=== PATIENT | female | born 1955 | race African-American/Black ===

== ENCOUNTER 2016-12-25 12:44 | Outpatient (CLI) | payer OTHER ==
--- NOTE | 2016-12-25 15:06 | RAD ---
SCOLIOSIS SERIES: Comparison: None. History: Life long history of scoliosis with chronic back pain. FINDINGS: Anterior views of the thoracic and lumbosacral spines were performed. Patient has moderate scoliotic curvature of the spine with an S-shaped configuration. The maximum angle is approximately 46%. Ther e are moderate osteophytes in the lower thoracic and upper lumbar spine. IMPRESSION: Moderate scoliosis and degenerative changes of the spine as above. POS: [facility]
== END 2016-12-25 12:45 | disposition home or self-care (01) ==
LOC: SCSRAD 12:44
PROVIDERS: ATTEND Family Medicine
DX: M41.9 Scoliosis, unspecified (principal); M47.819 Spondylosis without myelopathy or radiculopathy, site unspecified
CPT/HCPCS: 72081

== ENCOUNTER 2017-01-06 10:01 | Outpatient (CLI) | payer OTHER ==
--- NOTE | 2017-01-06 14:04 | MRI ---
LUMBAR SPINE MRI WITHOUT IV CONTRAST: History: 61-year-old female with scoliosis and low back pain. Technique: Multiplanar, multisequence MRI examination of the lumbar spine was performed. FINDINGS: There does appear to be a T2 and T1 hypointense nodular focus within the gallbladder raising concern s for gallstones. Conus medullaris region is unremarkable terminating at the L2 level. T12-L1: Unremarkable. L1-2: There is diffuse disc hypertrophic osteophytosis with some mild right lateral recess stenosis without significant foraminal stenosis. L2-3: There is diffuse disc osteophytosis and facet arthrosis with some mild lateral recess stenosis . L3-4: There is diffuse disc osteophytosis with ligament and facet hypertrophic changes with moderate right lateral recess stenosis and mild left recess stenosis with some mild to moderate bilateral fo raminal stenosis. L4-5: There is disc osteophytosis and ligament and facet hypertrophic changes with mild to moderate left lateral recess stenosis and severe left foraminal stenosis and mild to moderate right foraminal stenosis. L5-S1: Severe facet arthrosis with extensive fluid in the facet joints bilaterally. Very mild indent ion of the ventral thecal sac. Moderate to severe bilateral foraminal stenosis. There are some minimal scattered endplate changes at all levels including some minimal type I endpla te changes including L1-2, L2-3, L3-4, L4-5 and L5-S1. IMPRESSION: Levoscoliosis. Variable severity multiple level lateral recess and foraminal stenosis. Type I endpla te changes involving all of the lumbar disc levels. Probable gallstones, correlate with gallbladder ultrasound in that regard. POS: [facility]
== END 2017-01-06 10:02 | disposition home or self-care (01) ==
LOC: SCSMRI 10:01
PROVIDERS: ATTEND Family Medicine
DX: M54.16 Radiculopathy, lumbar region (principal); M41.86 Other forms of scoliosis, lumbar region
CPT/HCPCS: 72148

== ENCOUNTER 2017-10-01 11:31 | Emergency (ER) | payer OTHER | END 2017-10-01 12:12 | disposition home or self-care (01) | LOC: SCSER 11:31 | DX: M54.5 Low back pain (principal); G89.29 Other chronic pain; E78.5 Hyperlipidemia, unspecified; I10 Essential (primary) hypertension; Z79.899 Other long term (current) drug therapy | CPT/HCPCS: 99283 ==